=== PATIENT | female | born 1975 | race Caucasian/White ===

== ENCOUNTER → 2020-08-29 | Outpatient (CLI) | payer OTHER ==
[~2020-08-29] MED LIST: CIPROFLOXACIN500 M1 PO; FLAGYL500 MG PO; NORCO 5-325 TA1 EACH PO; ORTHO TRI-CYCL1 EACH PO
== END ==
LOC: M.CT 07:53
PROVIDERS: ATTEND Nurse Practitioner
DX: K42.9 Umbilical hernia without obstruction or gangrene (principal); K57.30 Diverticulosis of large intestine without perforation or abscess without bleeding; R31.9 Hematuria, unspecified